=== PATIENT | male | born 1950 | race Caucasian/White ===

== ENCOUNTER → 2021-09-22 | Day surgery (SDC) | payer OTHER ==
[~2021-09-22] MED LIST: DORZOLAMIDE HCL10 ML OP; FENTANYL CITRATE/PF 100MCG/2 ML INJ ONE; LATANOPROST2.5 ML OP; LIPITOR10 MG PO; MEDROL4 MG PO; MIDAZOLAM HCL 2 MG/2 ML VIAL ONE; OR PHACO EYE KIT ONE; PREOP PHACO EYE KIT ONE
[2021-09-22 12:45] VITALS: BP 154/72
== END | disposition home or self-care (01) ==
LOC: OR 09:25
PROVIDERS: ATTEND Ophthalmology
DX: H25.12 Age-related nuclear cataract, left eye (principal); H57.09 Other anomalies of pupillary function; E78.5 Hyperlipidemia, unspecified; Z01.812 Encounter for preprocedural laboratory examination; Z20.822 Contact with and (suspected) exposure to COVID-19; Z79.899 Other long term (current) drug therapy
CPT/HCPCS: J2250; J3010; U0002